=== PATIENT | female | born 1990 | race Caucasian/White ===

== ENCOUNTER 2019-11-08 20:03 | Inpatient (IN) | payer BC, OTHER ==
[2019-11-08] MEDS ORDERED: Morphine 4 MG/ML VIAL ONE (20:31)
[2019-11-08] MEDS ORDERED: Dexamethasone 4 mg/ml Vial ONE (20:31)
[2019-11-08] MEDS ORDERED: Pantoprazole 40 MG VIAL ONE (20:31)
[2019-11-08] MEDS ORDERED: Ondansetron PF 4 MG/2 ML Vial ONE (20:31)
[2019-11-08] MEDS ORDERED: Methocarbamol 500 MG TAB PO SCH (23:00)
[2019-11-08 23:16] VITALS: BMI 51.9
[2019-11-08] MEDS: Sodium Chloride 0.9% 1,000 ML IV SCH (23:29)
[2019-11-08] MEDS: Ketorolac Tromethamine 30 MG/ML VIAL IVP PRN (23:30)
[2019-11-09] MEDS: Morphine 2 MG/ML VIAL SLOW IVP PRN ×4 (01:26→16:05)
[2019-11-09] MEDS: Ketorolac Tromethamine 30 MG/ML VIAL IVP PRN ×2 (04:46→19:47)
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
[2019-11-09] MEDS: Enoxaparin Sodium 40 MG/0.4 ML SYRINGE SC SCH (08:17)
[2019-11-09] MEDS: Dexamethasone 4 mg/ml Vial SLOW IVP SCH (08:17)
--- NOTE | 2019-11-09 10:00 | PDOC.HOSPP ---
- Subjective Encounter Date: 11/09/19 Encounter Time: 09:58 Subjective: Ms. Brown was seen today in follow-up of severe low back pain and herniated lumbar disc. She says she is experiencing 10/10 pain. She also notes numbness in the left leg. She is able to move it however. - Objective Vital Signs & Weight: Vital Signs (12 hours) Temp Pulse Resp BP Pulse Ox 11/09/19 07:53 98.2 F 68 22 H 124/69 94 L 11/09/19 04:51 98.3 F 64 18 113/65 95 11/08/19 22:55 98.1 F 67 18 112/63 96 Weight Weight 331 lb 9 oz I&O: 11/08/19 11/09/19 11/10/19 06:59 06:59 06:59 Intake Total 800 Output Total 500 Balance 300 Hospitalist ROS - Medication Medications: Active Medications Generic Name Dose Route Start Last Admin Trade Name Freq PRN Reason Stop Dose Admin Dexamethasone 4 mg 11/09/19 09:00 11/09/19 08:17 Decadron SLOW IVP 4 mg DAILY BERNARDA Administration Enoxaparin Sodium 40 mg 11/09/19 09:00 11/09/19 08:17 Lovenox SC 40 mg 0900 BERNARDA Administration Sodium Chloride 1,000 mls @ 75 mls/hr 11/08/19 23:15 11/08/19 23:29 Normal Saline 0.9% IV 1,000 mls .[id number] BERNARDA Administration Ketorolac Tromethamine 30 mg 11/08/19 23:07 11/09/19 04:46 Toradol IVP 11/13/19 23:08 30 mg Q6H PRN Administration Pain Morphine Sulfate 2 mg 11/08/19 22:54 11/09/19 09:34 Morphine SLOW IVP 2 mg Q4H PRN Administration Pain - Exam Eye: PERRL, anicteric sclera ENT: normocephalic atraumatic Heart: RRR, no murmur, no gallops, no rubs, normal peripheral pulses Respiratory: CTAB, no wheezes, no rales, no ronchi, normal chest expansion Gastrointestinal: soft, non-tender, non-distended, normal bowel sounds, no palpable masses, no hepatomegaly Extremities: no cyanosis, no edema Musculoskeletal: normal strength (Muscle strength in both lower extremities is 5 /5. She is able to plantar and dorsiflex both feet, and large toe, bilaterally, good d.p. pulses bilaterally), no muscle wasting Psychiatric: A&O x 3 Hosp A/P (1) Lumbar spinal stenosis Code(s): M48.061 - SPINAL STENOSIS, LUMBAR REGION WITHOUT NEUROGENIC PENELOPE Status: Acute (2) Low back pain Code(s): M54.5 - LOW BACK PAIN Status: Chronic (3) Morbid obesity with BMI of 50.0-59.9, adult Code(s): E66.01 - MORBID (SEVERE) OBESITY DUE TO EXCESS CALORIES; Z68.43 - BODY MASS INDEX (BMI) 50.0-59.9, ADULT Status: Acute (4) Tobacco abuse Code(s): Z72.0 - TOBACCO USE Status: Chronic - Plan * Severe low back pain- MRI results noted. Her muscle strength is intact- awaiting Neurosurgery evaluation * Will add Gabapentin for Neuropathic pain
[2019-11-09] MEDS ORDERED: Gabapentin 100 MG CAP PO SCH (10:15)
[2019-11-09] MEDS: Sodium Chloride 0.9% 1,000 ML IV SCH ×2 (11:04→14:11)
[2019-11-09 13:04] LABS: SARS-CoV-2 MS2 Positive; SARS-CoV-2 N Gene Negative; SARS-CoV-2 S Gene Negative; SARS-CoV-2 by NAA Not Detected (NotDetected); SARS-CoV-2 orf1ab Negative
[2019-11-09] MEDS: HYDROcodone/Acetaminophen 5/325 mg Tablet PO PRN ×2 (14:10→19:45)
[2019-11-09 18:53] LABS: Pregnancy Test - Urine (BHCG) Negative (Negative); Pregu Control Background? CLEAR/WHITE (CLR/WHITE); Pregu Control Bar Appear? YES (CONTROL BAR); Specific Gravity 1.032 (1.002-1.036)
[2019-11-09] MEDS: Gabapentin 100 MG CAP PO SCH (19:45)
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
[2019-11-09] MEDS: Morphine 4 MG/ML VIAL SLOW IVP PRN (23:07)
[2019-11-10] MEDS: Methocarbamol 500 MG TAB PO PRN ×2 (01:55→22:55)
[2019-11-10] MEDS: HYDROcodone/Acetaminophen 5/325 mg Tablet PO PRN ×3 (01:55→20:50)
[2019-11-10] MEDS: Ketorolac Tromethamine 30 MG/ML VIAL IVP PRN ×2 (01:57→22:55)
[2019-11-10] MEDS: Morphine 2 MG/ML VIAL SLOW IVP PRN (02:58)
[2019-11-10 07:47] LABS: Anion Gap 12 mmol/L (10-20); BUN (Urea Nitrogen) 15 mg/dL (7.0-18.7); Calc. Creatinine Clearance 283 mL/min (70-130); Calcium 8.7 mg/dL (7.8-10.44); Carbon Dioxide 23 mmol/L (22-29); Chloride 106 mmol/L (98-107); Estimated GFR-MDRD Greater than 90; Glucose 104 mg/dL (70-105); Potassium 3.9 mmol/L (3.5-5.1); Sodium 137 mmol/L (136-145)
[2019-11-10 07:57] LABS: #Basophils 0.1 thou/uL (0.0-0.2); #Eosinphils 0.1 thou/uL (0.0-0.7); #Neutrophils 7.5 thou/uL (1.40-6.50); %Basophils 0.7 % (0.0-1.0); %Eosinophils 0.4 % (0.0-10.0); %Lymphocytes 36.7 % (21.0-51.0); %Monocytes 7.1 % (0.0-10.0); %Neutrophils 55.1 % (42.0-75.0); Hemoglobin 12.8 g/dL (12.0-16.0); Mean Corpuscular HGB CONC 32.6 g/dL (32.0-36.0); Mean Corpuscular Hemoglobin 30.3 pg (27.0-31.0); Mean Corpuscular Volume 92.9 fL (78.0-98.0); Mean Platelet Volume 8.4 fL (7.4-10.4); Platelet Count 228 thou/uL (130-400); RBC Distribution Width 12.5 % (11.5-14.5); Red Blood Cell (RBC) Count 4.22 mill/uL (4.20-5.40); White Blood Cell (WBC) Count 13.5 thou/uL (4.8-10.8)
[2019-11-10] MEDS: Gabapentin 100 MG CAP PO SCH ×2 (08:07→20:51)
[2019-11-10] MEDS: Enoxaparin Sodium 40 MG/0.4 ML SYRINGE SC SCH (08:07)
[2019-11-10] MEDS: Dexamethasone 4 mg/ml Vial SLOW IVP SCH (08:07)
[2019-11-10] MEDS ORDERED: methylPREDNISolone Acetate 40 mg/ml Vial ONE (12:14)
[2019-11-10] MEDS ORDERED: Iopamidol-M 300 61% 15 ML VIAL ONE (12:14)
[2019-11-10] MEDS ORDERED: Bupivacaine 0.25% 10 ML VIAL ONE (12:14)
[2019-11-10] MEDS ORDERED: Lidocaine 2% PF 5 ML VIAL ONE (12:14)
[2019-11-10] MEDS: Morphine 4 MG/ML VIAL SLOW IVP PRN ×2 (12:50→19:11)
--- NOTE | 2019-11-10 16:18 | PDOC.HOSPP ---
- Subjective Encounter Date: 11/10/19 Encounter Time: 16:16 Subjective: Ms. Brown was seen today in follow-up of intractable back pain. She says she continues to have pain in her leg which chavez when she stands. She also notes numbness, and reports an inability to tell when she needs to urinate or defecate. She tells me she does not remember the Neurosurgery PA coming to talk with her. She says she wants to go ahead and " get something done". - Objective Vital Signs & Weight: Vital Signs (12 hours) Temp Pulse Resp BP Pulse Ox 11/10/19 12:00 98.3 F 60 18 132/65 97 11/10/19 09:43 98.4 F 53 L 18 137/82 97 11/10/19 08:07 98 11/10/19 08:00 98.3 F 62 18 151/95 H 98 Weight Weight 331 lb 9 oz I&O: 11/09/19 11/10/19 11/11/19 06:59 06:59 06:59 Intake Total 800 480 Output Total 500 385 Balance 300 95 Result Diagrams: 11/10/19 04:30 11/10/19 03:30 Hospitalist ROS - Medication Medications: Active Medications Generic Name Dose Route Start Last Admin Trade Name Freq PRN Reason Stop Dose Admin Hydrocodone Bitart/Acetaminophen 1 tab 11/08/19 22:51 11/10/19 15:37 [place] 5/325 PO 1 tab Q4H PRN Administration Moderate Pain (4-6) Dexamethasone 4 mg 11/09/19 09:00 11/10/19 08:07 Decadron SLOW IVP 4 mg DAILY BERNARDA Administration Enoxaparin Sodium 40 mg 11/09/19 09:00 11/10/19 08:07 Lovenox SC Not Given 899 BERNARDA Gabapentin 100 mg 11/09/19 21:00 11/10/19 08:07 Neurontin PO 100 mg BID BERNARDA Administration Ketorolac Tromethamine 30 mg 11/08/19 23:07 11/10/19 01:57 Toradol IVP 11/13/19 23:08 30 mg Q6H PRN Administration Pain Methocarbamol 500 mg 11/09/19 09:00 11/10/19 01:55 Robaxin PO 500 mg QID PRN Administration Muscle Spasm Morphine Sulfate 2 mg 11/08/19 22:54 11/10/19 02:58 Morphine SLOW IVP 2 mg Q4H PRN Administration Pain Morphine Sulfate 4 mg 11/09/19 18:02 11/10/19 12:50 Morphine SLOW IVP 4 mg Q4H PRN Administration Severe Pain (7-10) - Exam Eye: PERRL, anicteric sclera Heart: RRR, no murmur, no gallops, no rubs, normal peripheral pulses Respiratory: CTAB, no wheezes, no rales, no ronchi, normal chest expansion, no tachypnea Gastrointestinal: soft, non-tender, non-distended, normal bowel sounds, no palpable masses Extremities: no cyanosis, no edema Hosp A/P (1) Lumbar spinal stenosis Code(s): M48.061 - SPINAL STENOSIS, LUMBAR REGION WITHOUT NEUROGENIC PENELOPE Status: Acute (2) Low back pain Code(s): M54.5 - LOW BACK PAIN Status: Chronic (3) Morbid obesity with BMI of 50.0-59.9, adult Code(s): E66.01 - MORBID (SEVERE) OBESITY DUE TO EXCESS CALORIES; Z68.43 - BODY MASS INDEX (BMI) 50.0-59.9, ADULT Status: Acute (4) Tobacco abuse Code(s): Z72.0 - TOBACCO USE Status: Chronic - Plan * Severe low back pain- Patient is now contemplating surgery * If she decides against surgery she can be discharged with Outpatient PT
--- NOTE | 2019-11-10 16:57 | PDOC.EVN ---
Event Note - Event Note Event Note: Ms. Brown has now decided to go ahead with Surgery. I will place a call to the Neurosurgery team.
[2019-11-11] MEDS: Morphine 4 MG/ML VIAL SLOW IVP PRN (04:19)
[2019-11-11] MEDS: Ketorolac Tromethamine 30 MG/ML VIAL IVP PRN (06:41)
[2019-11-11] MEDS: HYDROcodone/Acetaminophen 5/325 mg Tablet PO PRN (06:43)
[2019-11-11] MEDS: Enoxaparin Sodium 40 MG/0.4 ML SYRINGE SC SCH (08:13)
[2019-11-11] MEDS: Gabapentin 100 MG CAP PO SCH ×2 (08:20→21:37)
[2019-11-11] MEDS: Dexamethasone 4 mg/ml Vial SLOW IVP SCH (08:20)
[2019-11-11] MEDS ORDERED: Ondansetron PF 4 MG/2 ML Vial IVP PRN (08:32)
--- NOTE | 2019-11-11 09:50 | PDOC.HOSPP ---
- Subjective Encounter Date: 11/11/19 Encounter Time: 08:00 Subjective: Patient seen for follow-up regarding lumbar spinal stenosis. She reports ongoing back pain. Denies chest pain or shortness of breath. Reports nausea. - Objective Vital Signs & Weight: Vital Signs (12 hours) Temp Pulse Resp BP Pulse Ox 11/11/19 07:23 98.2 F 65 16 129/76 98 Weight Weight 331 lb 9 oz I&O: 11/10/19 11/11/19 11/12/19 06:59 06:59 06:59 Intake Total 480 1140 Output Total 385 1800 Balance 95 -660 Result Diagrams: 11/10/19 04:30 11/10/19 03:30 Additional Labs: I reviewed patient's labs and MAR Hospitalist ROS - Review of Systems Cardiovascular: denies: chest pain, palpitations, orthopnea, paroxysmal noc. dyspnea, edema, light headedness, other Gastrointestinal: denies: nausea, vomiting, abdominal pain, diarrhea, constipation, melena, hematochezia Musculoskeletal: reports: back pain. denies: neck pain, shoulder pain, arm pain, hand pain, leg pain, foot pain - Medication Medications: Active Medications Generic Name Dose Route Start Last Admin Trade Name Freq PRN Reason Stop Dose Admin Hydrocodone Bitart/Acetaminophen 1 tab 11/08/19 22:51 11/11/19 06:43 [place] 5/325 PO 1 tab Q4H PRN Administration Moderate Pain (4-6) Dexamethasone 4 mg 11/09/19 09:00 11/11/19 08:20 Decadron SLOW IVP 4 mg DAILY BERNARDA Administration Enoxaparin Sodium 40 mg 11/09/19 09:00 11/11/19 08:13 Lovenox SC Not Given 899 BERNARDA Gabapentin 100 mg 11/09/19 21:00 11/11/19 08:20 Neurontin PO 100 mg BID BERNARDA Administration Ketorolac Tromethamine 30 mg 11/08/19 23:07 11/11/19 06:41 Toradol IVP 11/13/19 23:08 30 mg Q6H PRN Administration Pain Methocarbamol 500 mg 11/09/19 09:00 11/10/19 22:55 Robaxin PO 500 mg QID PRN Administration Muscle Spasm Morphine Sulfate 2 mg 11/08/19 22:54 11/10/19 02:58 Morphine SLOW IVP 2 mg Q4H PRN Administration Pain Morphine Sulfate 4 mg 11/09/19 18:02 11/11/19 04:19 Morphine SLOW IVP 4 mg Q4H PRN Administration Severe Pain (7-10) Ondansetron HCl 4 mg 11/11/19 08:32 11/11/19 09:16 Ondansetron Pf 4 Mg/2 Ml Vial IVP 4 mg Q6H PRN Administration Nausea/Vomiting - Exam General - other findings: Morbid obesity Eye: anicteric sclera ENT: moist mucosa Neck: supple Heart: RRR Respiratory: CTAB Gastrointestinal: soft, non-tender Extremities: no cyanosis Skin: no rashes Musculoskeletal: no muscle wasting Psychiatric: normal affect, normal behavior Hosp A/P - Plan (1) Lumbar spinal stenosis Code(s): M48.061 - SPINAL STENOSIS, LUMBAR REGION WITHOUT NEUROGENIC PENELOPE Status: Acute (2) Low back pain Code(s): M54.5 - LOW BACK PAIN Status: Chronic (3) Morbid obesity with BMI of 50.0-59.9, adult Code(s): E66.01 - MORBID (SEVERE) OBESITY DUE TO EXCESS CALORIES; Z68.43 - BODY MASS INDEX (BMI) 50.0-59.9, ADULT Status: Acute (4) Tobacco abuse Code(s): Z72.0 - TOBACCO USE Status: Chronic - Plan Patient going for surgery later today for lumbar spinal stenosis. We will add PRN Zofran for nausea.
[2019-11-11] MEDS ORDERED: Rocuronium Bromide 10 MG/ML (10ML VIAL) ONE (10:11)
[2019-11-11] MEDS ORDERED: Ondansetron PF 4 MG/2 ML Vial ONE ×3 (10:11→16:11)
[2019-11-11] MEDS ORDERED: Ketorolac Tromethamine 30 MG/ML VIAL ONE (10:11)
[2019-11-11] MEDS ORDERED: PROPOFOL 200 MG/20 ML VIAL ONE (10:11)
[2019-11-11] MEDS ORDERED: Glycopyrrolate 0.2 MG/ML 5 ML SYRINGE ONE (10:11)
[2019-11-11] MEDS ORDERED: Lidocaine 1% PF 5 ML VIAL ONE (10:11)
[2019-11-11] MEDS ORDERED: Dexamethasone 20 MG/5 ML VIAL ONE (10:11)
--- NOTE | 2019-11-11 11:24 | PRG ---
DATE OF SERVICE: Ms. Brown was admitted and has been to the hospital 4 times via the ER for low back and left greater than right lower extremity pain and bowel and bladder dysfunction. At this point, we have done injection therapy, oral analgesics for symptoms continue to be quite problematic. I have recommended surgery, which is an L3-5 laminectomy, partial facetectomy, foraminotomy, and left L4-L5 disk. Goals, indications, risks, alternatives, and complications were discussed in detail regarding the surgery. She wishes that we proceed. On exam, she is alert and appropriate. She does appear to have full strength, perhaps trace weakness in the left quadriceps and left dorsiflexor, EHL. Job ID: [id number]
[2019-11-11] MEDS ORDERED: Lidocaine 2% PF 100 mg/5 ml Syringe ONE ×2 (12:23→12:24)
[2019-11-11] MEDS ORDERED: Rocuronium Bromide 50 MG/5 ML VIAL ONE (12:23)
[2019-11-11] MEDS ORDERED: PROPOFOL 20 ML ONE (12:23)
[2019-11-11] MEDS ORDERED: Thrombin 5000 UNITS/5 ML VIAL ONE ×2 (13:08→15:17)
[2019-11-11] MEDS ORDERED: Morphine 4 MG/ML VIAL ONE (13:45)
[2019-11-11] MEDS ORDERED: Fentanyl 250 MCG/5 ML VIAL ONE (13:48)
--- NOTE | 2019-11-11 13:55 | OP ---
DATE OF PROCEDURE: 11/10/2019 PREOPERATIVE DIAGNOSIS: Lumbar disk herniation at L4-L5 with L5 left radiculopathy. PROCEDURE: Left L5 transforaminal injection with epidural and lateral recess spread of medication. ANESTHESIA: Local only. SUMMARY: Risks and benefits were discussed. Informed consent was obtained. She was taken to the fluoro suite, placed prone on the fluoro table. A DuraPrep prep and let dry. Fluoroscopic guidance was used to identify the L5 foramen counting from the L5-S1 level. Standard oblique views were obtained identifying the foramen and pedicle landmarks. After adequate local anesthesia, a 25-gauge Chiba needle was advanced into the superior medial portion of the foramen with AP views demonstrating needle tip at the 6 o'clock pedicular position. Contrast Isovue-200 injected 0.5 mL, achieved appropriate foraminal spread with spread into the lateral recess cephalad. Marcaine 0.25% of 1 mL with 40 mg of Depo-Medrol was injected. The needle was removed intact. There were no complications and the patient tolerated the procedure well. After the procedure, she had near resolution of her back and leg pain. She was sent back to the floor in good condition. Job ID: [id number]
[2019-11-11] MEDS ORDERED: Fentanyl 100 MCG/2 ML VIAL ONE ×3 (14:00→18:09)
[2019-11-11] MEDS ORDERED: HYDROmorphone 2 MG/ML VIAL ONE (15:31)
[2019-11-11] MEDS ORDERED: Fleet Enema 133 ML BOT PR PRN (17:34)
[2019-11-11] MEDS ORDERED: Acetaminophen 325 MG TAB PO PRN (17:34)
[2019-11-11] MEDS ORDERED: Milk Of Magnesia 30 ML UDCUP PO PRN (17:34)
[2019-11-11] MEDS ORDERED: diphenhydrAMINE 25 MG CAP PO PRN (17:34)
[2019-11-11] MEDS ORDERED: Bisacodyl 10 MG SUPP PR PRN (17:34)
[2019-11-11] MEDS ORDERED: traMADol HCl 50 MG TAB PO PRN (17:34)
[2019-11-11] MEDS ORDERED: Meperidine HCl/PF 25 MG/ML VIAL SLOW IVP PRN (17:39)
[2019-11-11] MEDS ORDERED: Promethazine HCl 25 MG/ML VIAL IM PRN (17:39)
[2019-11-11] MEDS ORDERED: Ondansetron HCl/PF 4 MG/2 ML Vial IVP PRN (17:39)
[2019-11-11] MEDS ORDERED: Promethazine HCl 25 MG/ML VIAL SLOW IVP PRN (17:39)
[2019-11-11] MEDS ORDERED: HYDROmorphone 2 MG/ML VIAL SLOW IVP PRN (17:39)
[2019-11-11] MEDS ORDERED: Promethazine HCl 25 MG/ML VIAL ONE (17:56)
[2019-11-11] MEDS ORDERED: HYDROmorphone 0.5 MG/0.5 ML SYRINGE ONE ×2 (18:51→19:12)
[2019-11-11] MEDS: Sodium Chloride 0.9% 1,000 ML IV SCH (20:55)
[2019-11-11] MEDS: Acetaminophen/Codeine 30-300mg Tablet PO PRN (21:36)
[2019-11-11] MEDS: CEFAZOLIN 2 GM in Premix Bag 1 BAG IVPB SCH (21:38)
[2019-11-11] MEDS: Morphine 2 MG/ML VIAL SLOW IVP PRN (22:11)
--- NOTE | 2019-11-11 23:02 | OP ---
DATE OF PROCEDURE: 11/11/2019 PROGRAM ASSISTANT: Tiffanie Brown PA-C PREPROCEDURE DIAGNOSES: Low back and left greater than right lower extremity pain with concern of early cauda equina syndrome. POSTPROCEDURE DIAGNOSES: Low back and left greater than right lower extremity pain with concern of early cauda equina syndrome. PROCEDURES PERFORMED: 1. L3-L4 and L4-L5 laminectomies, partial facetectomies, foraminotomies. 2. Left L4-L5 diskectomy. 3. Use of operative microscope for microdissection. DESCRIPTION OF PROCEDURE: After informed consent was obtained from the patient, the patient was brought to the OR. Proper patient, pause, and identification were carried out. She was placed under excellent general endotracheal anesthesia and positioned prone on the OR table. All appropriate points were padded. We identified the L3-L4 and L4-L5 dorsal spines, and a linear lexis was made. This region was sterilely cleansed, prepared, and draped. Proper patient, pause, and identification were carried out. The wound was then opened with a combination of sharp, monopolar, and blunt dissection. The L3-L4 and L4-L5 dorsal spines and lamina were exposed. Localization film confirmed area of interest. We then performed L3-L4 and L4-L5 laminectomies, partial facetectomies, foraminotomies with excellent decompression of common dural tube and nerve roots. I then brought the microscope in and using the microscope for microdissection, the left L4-L5 diskectomy was performed, working over the shoulder of the traversing left L5 nerve root. These two large fragments were removed. Copious irrigation occurred throughout as did maximizing hemostasis. The wound was then closed in anatomic layers following the sprinkle of vancomycin powder. The patient emerged from anesthesia. Job ID: [id number]
[2019-11-12] MEDS: Morphine 2 MG/ML VIAL SLOW IVP PRN ×4 (00:40→18:32)
[2019-11-12] MEDS: HYDROcodone/Acetaminophen 7.5/325 mg Tablet PO PRN ×3 (03:46→21:16)
[2019-11-12] MEDS: CEFAZOLIN 2 GM in Premix Bag 1 BAG IVPB SCH (04:51)
[2019-11-12] MEDS: Sodium Chloride 0.9% 1,000 ML IV SCH ×2 (08:46→22:20)
[2019-11-12] MEDS: Gabapentin 100 MG CAP PO SCH ×2 (08:52→21:19)
[2019-11-12] MEDS: Dexamethasone 4 mg/ml Vial SLOW IVP SCH (08:52)
[2019-11-12] MEDS: Lisinopril 20 MG TAB PO SCH (08:52)
--- NOTE | 2019-11-12 12:02 | PDOC.HOSPP ---
- Subjective Encounter Date: 11/12/19 Encounter Time: 07:00 Subjective: Patient seen in follow-up regarding spinal stenosis. She reports back pain and numbness. - Objective Vital Signs & Weight: Vital Signs (12 hours) Temp Pulse Resp BP BP Pulse Ox 11/12/19 08:52 118/77 11/12/19 08:45 98 11/12/19 07:45 98.7 F 60 16 118/77 98 Weight Weight 331 lb 9 oz I&O: 11/11/19 11/12/19 11/13/19 06:59 06:59 06:59 Intake Total 1140 Output Total 1800 1300 Balance -660 -1300 Result Diagrams: 11/10/19 04:30 11/10/19 03:30 Additional Labs: I reviewed patient's labs and MAR Hospitalist ROS - Review of Systems Cardiovascular: denies: chest pain, palpitations, orthopnea, paroxysmal noc. dyspnea, edema, light headedness Gastrointestinal: denies: nausea, vomiting, abdominal pain, diarrhea, constipation, melena, hematochezia Musculoskeletal: reports: back pain Neurological: reports: numbness - Medication Medications: Active Medications Generic Name Dose Route Start Last Admin Trade Name Freq PRN Reason Stop Dose Admin Acetaminophen/Codeine Phosphate 1 tab 11/11/19 17:34 11/11/19 21:36 Acetaminophen/Codeine 30-300mg Tablet PO 1 tab Q6H PRN Administration Mild-Moderate Pain (1-5) Hydrocodone Bitart/Acetaminophen 1 tab 11/11/19 17:34 11/12/19 03:46 Hydrocodone/Acetaminophen 7.5/325 Mg Tablet PO 1 tab Q6H PRN Administration Moderate Pain (4-6) Dexamethasone 4 mg 11/09/19 09:00 11/12/19 08:52 Decadron SLOW IVP 4 mg DAILY BERNARDA Administration Gabapentin 100 mg 11/09/19 21:00 11/12/19 08:52 Neurontin PO 100 mg BID BERNARDA Administration Sodium Chloride 1,000 mls @ 75 mls/hr 11/11/19 17:45 11/12/19 08:46 Normal Saline 0.9% IV 1,000 mls .[id number] BERNARDA Administration Lisinopril 20 mg 11/12/19 09:00 11/12/19 08:52 Lisinopril 20 Mg Tab PO 20 mg DAILY BERNARDA Administration Methocarbamol 500 mg 11/09/19 09:00 11/10/19 22:55 Robaxin PO 500 mg QID PRN Administration Muscle Spasm Morphine Sulfate 2 mg 11/11/19 17:40 11/12/19 05:55 Morphine 2 Mg/Ml Vial SLOW IVP 2 mg Q1H PRN Administration Severe Pain (7-10) Ondansetron HCl 4 mg 11/11/19 08:32 11/11/19 09:16 Ondansetron Pf 4 Mg/2 Ml Vial IVP 4 mg Q6H PRN Administration Nausea/Vomiting - Exam General - other findings: Morbid obesity ENT: normocephalic atraumatic Neck: supple, no thyromegaly Heart: RRR Respiratory: CTAB Gastrointestinal: soft, non-tender Extremities: no cyanosis Musculoskeletal: no muscle wasting Psychiatric: normal affect, normal behavior Hosp A/P - Plan (1) Lumbar spinal stenosis Code(s): M48.061 - SPINAL STENOSIS, LUMBAR REGION WITHOUT NEUROGENIC PENELOPE Status: Acute (2) Low back pain Code(s): M54.5 - LOW BACK PAIN Status: Chronic (3) Morbid obesity with BMI of 50.0-59.9, adult Code(s): E66.01 - MORBID (SEVERE) OBESITY DUE TO EXCESS CALORIES; Z68.43 - BODY MASS INDEX (BMI) 50.0-59.9, ADULT Status: Acute (4) Tobacco abuse Code(s): Z72.0 - TOBACCO USE Status: Chronic (5) HTN Status: Chronic - Plan Patient had surgery for spinal stenosis yesterday. Neurosurgery following. Hypertension is controlled, continue lisinopril. Ambulate patient.
[2019-11-12] MEDS: tiZANidine HCl 4 MG TAB PO PRN ×2 (12:28→21:19)
[2019-11-12] MEDS: Acetaminophen/Codeine 30-300mg Tablet PO PRN (16:02)
--- NOTE | 2019-11-12 21:33 | PDOC.EVN ---
Event Note - Event Note Event Note: Patient with urine retention, bladder scan showed 660 mLs. Had tay removed earlier today. I&O cath advised x 1. Repeat if needed. Consider re-placing tay if retention continues.
[2019-11-13] MEDS: Acetaminophen/Codeine 30-300mg Tablet PO PRN ×3 (00:59→20:50)
[2019-11-13] MEDS: Methocarbamol 500 MG TAB PO PRN (01:00)
[2019-11-13] MEDS: HYDROcodone/Acetaminophen 7.5/325 mg Tablet PO PRN ×3 (02:51→17:25)
[2019-11-13 06:04] LABS: Bacteria/HPF 2+ HPF (None Seen); Bilirubin Negative (Negative); Blood, Urine 1+ (Negative); Clarity Clear (Clear); Glucose, Urine (Dipstick) Normal (Negative); Ketone, Urine Negative (Negative); Leukocyte 250 Leu/uL (Negative); Nitrite Negative (Negative); Protein, Urine (Dipstick) Negative (Neg-Trace); RBC/HPF 0-3 HPF (0-3); Squamous Epithelial 0-3 HPF (0-3); Urobilinogen Normal mg/dL (Less than 2)
[2019-11-13 06:10] LABS: Urine Culture Reflex Yes Yes
[2019-11-13] MEDS: Dexamethasone 4 mg/ml Vial SLOW IVP SCH (08:45)
[2019-11-13] MEDS: Lisinopril 20 MG TAB PO SCH (08:45)
[2019-11-13] MEDS: Gabapentin 100 MG CAP PO SCH ×2 (08:45→20:50)
--- NOTE | 2019-11-13 10:14 | PRG ---
DATE OF SERVICE: 11/13/2019 SUBJECTIVE: The patient is now postoperative day #2, status post L3-L4 and L4- L5 laminectomy, left L4-L5 diskectomy for a large L4-L5 herniated disk. Following the surgery, she was transitioned to the Med/Surg floor. She has had ongoing issues with back pain and some dysesthesias in the legs, but she reports that these do seem to be improving gradually with time. She has been using a bedside commode and slowly beginning to mobilize with physical therapy. She is complaining some left ankle pain and feels that she may have tripped and rolled it before surgery. OBJECTIVE: On exam this morning, she is awake, alert, in no acute distress. She has free active range of motion of all extremities. She has good strength in the bed. She has normal reflexive. Sensation is intact to light touch. She is not having any incisional issues. PLAN: We will continue to have her mobilize with physical therapy and work on pain control. I will check an x-ray of the left ankle since she feels that she may have had direct trauma to this area. Depending on her progress, she may be able to transition to home tomorrow. Job ID: [id number] MTDD
[2019-11-13] MEDS: Sodium Chloride 0.9% 1,000 ML IV SCH (11:34)
[2019-11-13] MEDS: tiZANidine HCl 4 MG TAB PO PRN ×2 (12:03→20:50)
--- NOTE | 2019-11-13 12:29 | RAD ---
LEFT ANKLE 3 VIEWS: HISTORY: Left ankle pain. FINDINGS: There is some diffuse soft tissue fullness and swelling. Inferior calcaneal plantar enthesophyte. N o acute fracture or dislocation. IMPRESSION: No acute fracture or dislocation. POS: OFF
--- NOTE | 2019-11-13 17:33 | PDOC.HOSPP ---
- Subjective Encounter Date: 11/13/19 Encounter Time: 17:32 Subjective: Patient seen for follow-up regarding urinary retention. Denies chest pain or shortness of breath. - Objective Vital Signs & Weight: Vital Signs (12 hours) Temp Pulse Resp BP BP BP Pulse Ox 11/13/19 15:27 98.3 F 90 18 138/88 100 11/13/19 11:20 98.5 F 82 18 131/86 96 11/13/19 08:45 109/65 11/13/19 07:45 98.4 F 73 18 109/65 98 Weight Weight 331 lb 9 oz I&O: 11/12/19 11/13/19 11/14/19 06:59 06:59 06:59 Intake Total 711 Output Total 1300 3720 Balance -1300 -3009 Result Diagrams: 11/10/19 04:30 11/10/19 03:30 Additional Labs: I reviewed patient's labs and MAR Hospitalist ROS - Review of Systems Cardiovascular: denies: chest pain, palpitations, orthopnea, paroxysmal noc. dyspnea, edema, light headedness Gastrointestinal: denies: nausea, vomiting, abdominal pain, diarrhea, co nstipation, melena, hematochezia Genitourinary: reports: retention - Medication Medications: Active Medications Generic Name Dose Route Start Last Admin Trade Name Freq PRN Reason Stop Dose Admin Acetaminophen/Codeine Phosphate 1 tab 11/11/19 17:34 11/13/19 12:03 Acetaminophen/Codeine 30-300mg Tablet PO 1 tab Q6H PRN Administration Mild-Moderate Pain (1-5) Hydrocodone Bitart/Acetaminophen 1 tab 11/11/19 17:34 11/13/19 17:25 Hydrocodone/Acetaminophen 7.5/325 Mg Tablet PO 1 tab Q6H PRN Administration Moderate Pain (4-6) Dexamethasone 4 mg 11/09/19 09:00 11/13/19 08:45 Decadron SLOW IVP 4 mg DAILY BERNARDA Administration Gabapentin 100 mg 11/09/19 21:00 11/13/19 08:45 Neurontin PO 100 mg BID BERNARDA Administration Sodium Chloride 1,000 mls @ 75 mls/hr 11/11/19 17:45 11/13/19 11:34 Normal Saline 0.9% IV Not Given .[id number] BERNARDA Lisinopril 20 mg 11/12/19 09:00 11/13/19 08:45 Lisinopril 20 Mg Tab PO 20 mg DAILY BERNARDA Administration Methocarbamol 500 mg 11/09/19 09:00 11/13/19 01:00 Robaxin PO 500 mg QID PRN Administration Muscle Spasm Morphine Sulfate 2 mg 11/11/19 17:40 11/12/19 18:32 Morphine 2 Mg/Ml Vial SLOW IVP 2 mg Q1H PRN Administration Severe Pain (7-10) Ondansetron HCl 4 mg 11/11/19 08:32 11/11/19 09:16 Ondansetron Pf 4 Mg/2 Ml Vial IVP 4 mg Q6H PRN Administration Nausea/Vomiting Tizanidine HCl 4 mg 11/11/19 17:34 11/13/19 12:03 Tizanidine Hcl 4 Mg Tab PO 4 mg TID PRN Administration Muscle Spasm Tramadol HCl 50 mg 11/11/19 17:34 11/12/19 17:12 Tramadol Hcl 50 Mg Tab PO 50 mg Q6H PRN Administration Mild Pain (1-3) - Exam General - other findings: Morbid obesity Eye: anicteric sclera ENT: moist mucosa Neck: supple Heart: RRR Respiratory: CTAB Gastrointestinal: soft, non-tender Extremities: no cyanosis Skin: no rashes Musculoskeletal: no muscle wasting Psychiatric: normal affect, normal behavior Hosp A/P - Plan -Assessment (1) Urinary retention Status: Acute (2) Lumbar spinal stenosis Code(s): M48.061 - SPINAL STENOSIS, LUMBAR REGION WITHOUT NEUROGENIC PENELOPE Status: Acute (3) Low back pain Code(s): M54.5 - LOW BACK PAIN Status: Chronic (4) Morbid obesity with BMI of 50.0-59.9, adult Code(s): E66.01 - MORBID (SEVERE) OBESITY DUE TO EXCESS CALORIES; Z68.43 - BODY MASS INDEX (BMI) 50.0-59.9, ADULT Status: Acute (5) Tobacco abuse Code(s): Z72.0 - TOBACCO USE Status: Chronic (6) HTN Status: Chronic - Plan In and out catheterization for now. If continues, will consider urology input in the morning. Patient had surgery for spinal stenosis. Neurosurgery following. Hypertension is controlled, continue lisinopril. Ambulate patient.
[2019-11-14] MEDS: Sodium Chloride 0.9% 1,000 ML IV SCH ×2 (01:28→13:08)
[2019-11-14] MEDS: HYDROcodone/Acetaminophen 7.5/325 mg Tablet PO PRN ×2 (02:35→13:12)
[2019-11-14] MEDS: Methocarbamol 500 MG TAB PO PRN (02:35)
[2019-11-14] MEDS: tiZANidine HCl 4 MG TAB PO PRN (05:49)
[2019-11-14] MEDS: Acetaminophen/Codeine 30-300mg Tablet PO PRN (05:49)
[2019-11-14] MEDS: Lisinopril 20 MG TAB PO SCH (08:40)
[2019-11-14] MEDS: Gabapentin 100 MG CAP PO SCH (08:40)
[2019-11-14] MEDS: Dexamethasone 4 mg/ml Vial SLOW IVP SCH (08:41)
--- NOTE | 2019-11-14 09:59 | PDOC.HOSPP ---
- Subjective Encounter Date: 11/14/19 Encounter Time: 06:00 Subjective: Patient seen in follow-up regarding urinary retention. She reports ongoing urinary retention. Denies any fevers or chills. - Objective Vital Signs & Weight: Vital Signs (12 hours) Temp Pulse Resp BP BP BP Pulse Ox 11/14/19 08:40 120/72 11/14/19 07:12 98.8 F 72 18 120/72 99 11/14/19 04:30 98.3 F 61 18 115/70 98 11/14/19 00:00 98.6 F 81 20 138/73 98 Weight Weight 331 lb 9 oz I&O: 11/13/19 11/14/19 11/15/19 06:59 06:59 06:59 Intake Total 711 2800 Output Total 3720 2650 Balance -3009 150 Result Diagrams: 11/10/19 04:30 11/10/19 03:30 Additional Labs: I reviewed patient's labs and MAR Hospitalist ROS - Review of Systems Constitutional: denies: fever, chills, sweats, weakness, malaise Genitourinary: reports: retention. denies: dysuria, frequency, incontinence, hematuria - Medication Medications: Active Medications Generic Name Dose Route Start Last Admin Trade Name Freq PRN Reason Stop Dose Admin Acetaminophen/Codeine Phosphate 1 tab 11/11/19 17:34 11/14/19 05:49 Acetaminophen/Codeine 30-300mg Tablet PO 1 tab Q6H PRN Administration Mild-Moderate Pain (1-5) Hydrocodone Bitart/Acetaminophen 1 tab 11/11/19 17:34 11/14/19 02:35 Hydrocodone/Acetaminophen 7.5/325 Mg Tablet PO 1 tab Q6H PRN Administration Moderate Pain (4-6) Dexamethasone 4 mg 11/09/19 09:00 11/14/19 08:41 Decadron SLOW IVP 4 mg DAILY BERNARDA Administration Gabapentin 100 mg 11/09/19 21:00 11/14/19 08:40 Neurontin PO 100 mg BID BERNARDA Administration Sodium Chloride 1,000 mls @ 75 mls/hr 11/11/19 17:45 11/14/19 01:28 Normal Saline 0.9% IV Not Given .[id number] BERNARDA Lisinopril 20 mg 11/12/19 09:00 11/14/19 08:40 Lisinopril 20 Mg Tab PO 20 mg DAILY BERNARDA Administration Methocarbamol 500 mg 11/09/19 09:00 11/14/19 02:35 Robaxin PO 500 mg QID PRN Administration Muscle Spasm Morphine Sulfate 2 mg 11/11/19 17:40 11/12/19 18:32 Morphine 2 Mg/Ml Vial SLOW IVP 2 mg Q1H PRN Administration Severe Pain (7-10) Ondansetron HCl 4 mg 11/11/19 08:32 11/11/19 09:16 Ondansetron Pf 4 Mg/2 Ml Vial IVP 4 mg Q6H PRN Administration Nausea/Vomiting Tizanidine HCl 4 mg 11/11/19 17:34 11/14/19 05:49 Tizanidine Hcl 4 Mg Tab PO 4 mg TID PRN Administration Muscle Spasm Tramadol HCl 50 mg 11/11/19 17:34 11/12/19 17:12 Tramadol Hcl 50 Mg Tab PO 50 mg Q6H PRN Administration Mild Pain (1-3) - Exam General - other findings: Morbidly obese Eye: anicteric sclera ENT: no oropharyngeal lesions Neck: supple Heart: RRR Respiratory: CTAB, normal chest expansion Gastrointestinal: soft, non-tender Extremities: no cyanosis Skin: no rashes Psychiatric: normal affect, normal behavior Hosp A/P - Plan -Assessment (1) Urinary retention Status: Acute (2) Lumbar spinal stenosis Code(s): M48.061 - SPINAL STENOSIS, LUMBAR REGION WITHOUT NEUROGENIC PENELOPE Status: Acute (3) Low back pain Code(s): M54.5 - LOW BACK PAIN Status: Chronic (4) Morbid obesity with BMI of 50.0-59.9, adult Code(s): E66.01 - MORBID (SEVERE) OBESITY DUE TO EXCESS CALORIES; Z68.43 - BODY MASS INDEX (BMI) 50.0-59.9, ADULT Status: Acute (5) Tobacco abuse Code(s): Z72.0 - TOBACCO USE Status: Chronic (6) HTN Status: Chronic - Plan Patient had urinary retention overnight, urology service has been consulted, will await opinion. patient had spinal steroid injection as well as L3-L4 and L4-L5 laminectomies, partial facetectomies, foraminotomies and left L4-L5 discectomy during this hospitalization. Neurosurgery following. continue lisinopril. Ambulate patient.
--- NOTE | 2019-11-14 10:39 | PRG ---
DATE OF SERVICE: SUBJECTIVE: Patient is now postoperative day #3, status post decompression for large L4-L5 disk herniation. Her pain is much improved and she is moving her legs easily and mobilizing short distances with the assistance of Physical Therapy. Attempt was made to remove her Dangelo catheter yesterday, however, patient had return of urinary retention and required replacement of the Dangelo. Urology has been consulted. OBJECTIVE: GENERAL: On exam this morning, patient is awake, alert, in no acute distress. VITAL SIGNS: Stable. SKIN: Her incision is clean, dry, and intact. NEUROLOGIC: She is moving her legs easily in the bed. She is normoreflexive. She is complaining of some numbness and tingling along the left foot and also persistently around her vaginal region, although this is somewhat improved per the patient since the surgery. ASSESSMENT AND PLAN: The patient's pain and mobilization have improved significantly since her surgery. Unfortunately, she still is having issues with urinary retention. We will get an opinion from Urology. Job ID: [id number]
[2019-11-14 12:29] VITALS: BP 120/73; TEMP 98.2
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
--- NOTE | 2019-11-14 13:14 | PRG ---
DATE OF SERVICE: 11/14/2019 Ms. Brown is resting comfortably. She continues to have urinary issues and required replacement of her catheter today. We will get Urology consult. Job ID: [id number]
[2019-11-14] MEDS ORDERED: traMADol HCl 50 MG TAB PO PRN (14:50)
--- NOTE | 2019-11-14 21:52 | DIS ---
DATE OF ADMISSION: 11/08/2019 DATE OF DISCHARGE: 11/14/2019 PRIMARY CARE PROVIDER: Caprice Selby. DISCHARGE DIAGNOSES: 1. Lumbar spinal stenosis. 2. Low back pain. 3. Morbid obesity. 4. Urinary retention. CONDITION: Condition of the patient on the day of discharge: Stable. I assessed Ms. Brown on the day of discharge. She denies any chest pain or shortness of breath. Vital signs are stable. S1 and S2 are heard, regular. Lungs are clear to auscultation bilaterally. CONSULTATIONS DURING THIS HOSPITALIZATION: Neurosurgery, Dr. Madrid; Pain Service, Dr. Montano; and Urology, Dr. Menezes. HOSPITAL COURSE: Ms. Brown is a pleasant 29-year-old lady, who was admitted to [facility] on November 08, 2019, for her back pain. She also had weakness and sensory deficit around the perianal area, down her left lower extremity. MRI done prior to admission showed multiple disk herniation in the thoracic and lumbosacral spine with spinal cord impingement. She was seen by Neurosurgery Service. She was offered surgery, which patient initially declined. She received spinal steroid injection by Pain Management Service. She subsequently elected to have surgery. On November 11, 2019, she underwent L3-L4 and L4-L5 laminectomies, partial facetectomies and foraminotomies. She also underwent left L4-L5 diskectomy. During the postoperative period, she developed urinary retention. She was seen by Urology Service. She is being discharged home with Dangelo catheter in place. Urology Service will follow up with her on November 29, 2019. Urinalysis had leukocyte esterase. Preliminary urine culture is negative. She is advised to follow up with primary care provider for final urine culture report. She is being discharged home on empiric Macrobid. DISCHARGE MEDICATIONS: 1. Lisinopril 20 mg daily. 2. Macrobid 100 mg 2 times a day for 1 week. 3. Tramadol 50 mg every 8 hours as needed, 15 tablets to be dispensed. POST ACUTE CARE FOLLOWUP: With primary care provider in 3 days, with Urologist in 2 weeks, and with Neurosurgeon in 10 days. ACTIVITY: As tolerated. DIET: Heart healthy. DISCHARGE DESTINATION: Home. TIME SPENT: Total amount of time spent coordinating this discharge: 20 minutes. ADDENDUM: Please note that Ms. Brown needs a Bariatric Rollator Walker for ambulation because of weakness. She was given a prescription for the same. Job ID: [id number]
== END 2019-11-14 17:47 | disposition home or self-care (01) | DRG 519 ==
LOC: ERS 20:03 → T4-A 20:48 → SURG A 11-11 20:50
PROVIDERS: ADMIT Internal Medicine; ATTEND Internal Medicine
PROC: 3E0S3GC Introduction of Other Therapeutic Substance into Epidural Space, Percutaneous Approach (ICD-10-PCS; 2019-11-10)
PROC: 0SB20ZZ Excision of Lumbar Vertebral Disc, Open Approach (ICD-10-PCS; principal; 2019-11-11)
PROC: 01NB0ZZ Release Lumbar Nerve, Open Approach (ICD-10-PCS; 2019-11-11)
PROC: 0T9B70Z Drainage of Bladder with Drainage Device, Via Natural or Artificial Opening (ICD-10-PCS; 2019-11-14)
DX: M48.061 Spinal stenosis, lumbar region without neurogenic claudication (principal); Z68.43 Body mass index [BMI] 50.0-59.9, adult; G83.4 Cauda equina syndrome; M51.06 Intervertebral disc disorders with myelopathy, lumbar region; E66.01 Morbid (severe) obesity due to excess calories; R33.9 Retention of urine, unspecified; Z20.828 Contact with and (suspected) exposure to other viral communicable diseases; I10 Essential (primary) hypertension; G89.29 Other chronic pain; F41.9 Anxiety disorder, unspecified; M51.26 Other intervertebral disc displacement, lumbar region; F17.210 Nicotine dependence, cigarettes, uncomplicated; M51.16 Intervertebral disc disorders with radiculopathy, lumbar region; Z79.899 Other long term (current) drug therapy
CPT/HCPCS: 76000; 80048; 81001; 81025; 85025; 87086; 87635; 96374; 96375; C9113; J0690; J1100; J1170; J1650; J1885; J2001; J2270; J2405; J2550; J2704; J2920; J3010; J3370; J7620; Q9967; S0020; U0003

== ENCOUNTER 2019-11-16 13:38 | Emergency (ER) | payer BC ==
[2019-11-16 14:50] LABS: #Basophils 0.1 thou/uL (0.0-0.2); #Eosinphils 0.2 thou/uL (0.0-0.7); #Lymphocytes 3.5 thou/uL (1.20-3.40); #Neutrophils 11.8 thou/uL (1.40-6.50); %Basophils 0.4 % (0.0-1.0); %Lymphocytes 21.4 % (21.0-51.0); %Monocytes 5.8 % (0.0-10.0); %Neutrophils 71.5 % (42.0-75.0); Hemoglobin 13.2 g/dL (12.0-16.0); Mean Corpuscular HGB CONC 32.9 g/dL (32.0-36.0); Mean Corpuscular Hemoglobin 30.7 pg (27.0-31.0); Mean Corpuscular Volume 93.5 fL (78.0-98.0); Mean Platelet Volume 8.9 fL (7.4-10.4); Platelet Count 238 thou/uL (130-400); RBC Distribution Width 12.6 % (11.5-14.5); Red Blood Cell (RBC) Count 4.28 mill/uL (4.20-5.40); White Blood Cell (WBC) Count 16.5 thou/uL (4.8-10.8)
[2019-11-16 15:13] LABS: Anion Gap 13 mmol/L (10-20); BUN (Urea Nitrogen) 12 mg/dL (7.0-18.7); CK (CPK) 72 U/L (29-168); Calc. Creatinine Clearance 0 mL/min (70-130); Calcium 9.6 mg/dL (7.8-10.44); Carbon Dioxide 26 mmol/L (22-29); Chloride 102 mmol/L (98-107); Estimated GFR-MDRD Greater than 90; Glucose 93 mg/dL (70-105); Potassium 5.1 mmol/L (3.5-5.1); Sodium 136 mmol/L (136-145)
[2019-11-16 15:47] LABS: Bilirubin Negative (Negative); Blood, Urine 2+ (Negative); Clarity Clear (Clear); Glucose, Urine (Dipstick) Normal (Negative); Ketone, Urine Negative (Negative); Leukocyte Negative Leu/uL (Negative); Nitrite Negative (Negative); Protein, Urine (Dipstick) 20 mg/dL (Neg-Trace); Specific Gravity, Urine 1.026 (1.002-1.036); Urobilinogen Normal mg/dL (Less than 2); pH, Urine 5.5 (5.0-9.0)
[2019-11-16 15:55] LABS: Bacteria/HPF None Seen HPF (None Seen); Mucous/LPF 2+ LPF (<2+); Transitional Epithelial 0-3 HPF (None Seen)
== END 2019-11-16 17:12 | disposition home or self-care (01) ==
LOC: ERS 13:38
DX: T83.011A Breakdown (mechanical) of indwelling urethral catheter, initial encounter (principal); R33.9 Retention of urine, unspecified; I10 Essential (primary) hypertension; F41.9 Anxiety disorder, unspecified; F17.200 Nicotine dependence, unspecified, uncomplicated; Z79.899 Other long term (current) drug therapy
CPT/HCPCS: 36415; 51702; 80048; 81003; 81015; 82550; 85025

== ENCOUNTER 2019-11-16 18:02 | Emergency (ER) | payer BC | END 2019-11-16 18:55 | disposition home or self-care (01) | LOC: ERS 18:02 | DX: T83.031A Leakage of indwelling urethral catheter, initial encounter (principal); I10 Essential (primary) hypertension; F41.9 Anxiety disorder, unspecified; F17.200 Nicotine dependence, unspecified, uncomplicated | CPT/HCPCS: 36415; 51702; 80048; 81003; 81015; 82550; 85025; 99283 ==

== ENCOUNTER 2022-11-26 09:28 | Outpatient (CLI) | payer BC | END 2022-11-26 09:29 | disposition home or self-care (01) | LOC: BICMAMMO 09:28 | PROVIDERS: ATTEND Nurse Practitioner Family | DX: N64.4 Mastodynia (principal); R10.2 Pelvic and perineal pain | CPT/HCPCS: 76856; 77066; 93976; G0279 ==